=== PATIENT | male | born 1985 | race Caucasian/White ===

== ENCOUNTER 2022-10-12 12:52 | Emergency (ER) | payer OTHER ==
[2022-10-12 13:11] LABS: Absolute Lymphocytes (CBC) 2.7 K/uL (0.7-4.9); Hematocrit 40.1 % (39.6-49.0); Lymphocytes % 38.1 % (15.3-44.8); MCV 87.8 fL (80-100); MPV 7.7 fL (7.6-11.3); RBC Red Blood Cell Count 4.56 M/uL (4.33-5.43)
[2022-10-12 13:17] LABS: Protime INR 0.98
[2022-10-12] MEDS ORDERED: CEFAZOLIN SODIUM 1 GM/VIAL ONE (13:22)
[2022-10-12] MEDS ORDERED: ONDANSETRON 4 MG/2 ML VIAL ONE ×2 (13:23→14:25)
[2022-10-12] MEDS ORDERED: NA CHLORIDE 0.9% 1,000 ML ONE (13:23)
[2022-10-12] MEDS ORDERED: FENTANYL CITR 100 MCG/2 ML ONE ×2 (13:23→14:25)
[2022-10-12] MEDS ORDERED: NA CHLORIDE 0.9% 100 ML ONE (13:23)
[2022-10-12] MEDS ORDERED: TDAP (DIPHTH,PERTUSS(ACELL),TET VAC) 0.5 ML VIAL IMVAC ONE (13:23)
[2022-10-12 13:40] LABS: ALT/SGPT 23 U/L (16-61); AST/SGOT 17 U/L (15-37); Albumin 3.9 g/dL (3.4-5.0); Alkaline Phosphatase 56 U/L (45-117); BUN Blood Urea Nitrogen 22 mg/dL (7-18); Bicarbonate 29 mmol/L (21-32); Bilirubin Direct 0.1 mg/dL (0-0.2); Bilirubin Total 0.5 mg/dL (0.2-1.0); Glomerular Filtration Rate 82 ml/min (=/>90); Glucose Level 114 mg/dL (74-106); Magnesium 2.1 mg/dL (1.6-2.4); NT PRO-BNP 22 pg/mL (<125); Potassium 3.8 mmol/L (3.5-5.1); Protein, Total 7.1 g/dL (6.4-8.2); Sodium Level 138 mmol/L (136-145)
[2022-10-12 13:45] LABS: Troponin High Sensitivity < 3.0 pg/mL (<58.9)
--- NOTE | 2022-10-12 13:45 | RAD REPORT ---
EXAM DESCRIPTION: Emilia Single View10/12/2022 1:15 pm CLINICAL HISTORY: Chest pain COMPARISON: No comparisons TECHNIQUE: Portable AP view of the chest. FINDINGS: The lungs are clear. No pneumothorax or effusion. The cardiomediastinal contours are unrem arkable. IMPRESSION: No acute cardiopulmonary process.
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
--- NOTE | 2022-10-12 18:37 | EKG ---
Test Date: 2022-10-12 Test Time: 13:32:01 Clinical Veterinarian: ELVIS MEASUREMENT RESULTS: Intervals: Rate: 84 OH: 140 QRSD: 106 QT: 378 QTc: 446 [place]: P: 74 OH: 140 QRS: 75 T: 61 INTERPRETIVE STATEMENTS: Normal sinus rhythm Nonspecific T wave abnormality Abnormal ECG No previous ECG available for comparison Electronically Signed On 10-12-22 18:36:44 UNEMPLOYMENT EXAMINER by Franklin Stanton
== END 2022-10-12 15:52 | disposition home or self-care (01) ==
LOC: ER 12:52
DX: S01.512A Laceration without foreign body of oral cavity, initial encounter (principal); S22.32XA Fracture of one rib, left side, initial encounter for closed fracture; S80.212A Abrasion, left knee, initial encounter; S80.211A Abrasion, right knee, initial encounter; S50.01XA Contusion of right elbow, initial encounter; S30.1XXA Contusion of abdominal wall, initial encounter; K02.9 Dental caries, unspecified; K02.7 Dental root caries; V03.00XA Pedestrian on foot injured in collision with car, pick-up truck or van in nontraffic accident, initial encounter; Z23 Encounter for immunization
CPT/HCPCS: 93005; 85025; 80048; 36415; 83735; 85610; 80076; 84484; 83880; 70450; 72125; 71260; 74177; 71045; 72170; 73130 ×2; 73080; 73562 ×2; Q9967; J3010 ×2; J7030; J2405 ×2; J0690; 90471; 96365; 96366; 96375; 99285